=== PATIENT | male | born 1995 | race Caucasian/White ===

== ENCOUNTER 2021-03-23 10:15 | Emergency (ER) | payer SELFPAY ==
[~2021-03-23 10:15] MED LIST: BACTROBAN OINT22 GM TP
[2021-03-23] MEDS ORDERED: AUGMENTIN 875-1 EACH PO (10:51)
[2021-03-23] MEDS ORDERED: FLOXIN 0.3% OTIC5 ML AD (20:40)
[2021-03-23] MEDS ORDERED: IBUPROFEN800 MG PO (20:40)
== END 2021-03-23 11:25 | disposition home or self-care (01) ==
LOC: ER1 10:15
DX: H66.93 Otitis media, unspecified, bilateral (principal); F17.200 Nicotine dependence, unspecified, uncomplicated
CPT/HCPCS: 99282

== ENCOUNTER 2021-03-23 18:33 | Emergency (ER) | payer OTHER ==
[~2021-03-23 18:33] MED LIST changes: +AUGMENTIN 875-1 EACH PO
[2021-03-23] MEDS ORDERED: FLOXIN 0.3% OTIC5 ML AD (20:40)
[2021-03-23] MEDS ORDERED: IBUPROFEN800 MG PO (20:40)
== END 2021-03-23 21:15 | disposition home or self-care (01) ==
LOC: ER1 18:33
DX: H66.93 Otitis media, unspecified, bilateral (principal); F17.200 Nicotine dependence, unspecified, uncomplicated
CPT/HCPCS: 99282; J0153; J0696